=== PATIENT | female | born 2000 | race Caucasian/White ===

== ENCOUNTER → 2019-10-18 09:59 | Outpatient (CLI) | payer OTHER, SELFPAY ==
--- NOTE | ~2019-10-18 | MR_ITS ---
EXAMINATION: MR knee LT wo con DATE: 10/18/2019 10:43 INDICATION: Lateral left knee pain. TECHNIQUE: Magnetic resonance imaging (MRI) of the left knee was performed without intravenous contra st. Sequences included axial PD-weighted FS FSE, coronal PD-weighted FSE and PD-weighted FS FSE, sagi ttal PD-weighted FSE, and sagittal T2-weighted FS FSE. COMPARISON: None. FINDINGS: Medial compartment: Medial meniscus is normal. Medial compartment cartilage is normal. Lateral compartment: Lateral meniscus is normal. Lateral compartment cartilage is normal. Patellofemoral compartment: Patellar cartilage is normal. There is mild edema-like marrow signal intensity in medial patella, lik darius reactive. Ligaments and tendons: The anterior and posterior cruciate ligaments are normal. Medial collateral ligament and lateral sanjana ateral ligament complex are normal. The extensor mechanism is normal. Fluid: There is no knee joint effusion. IMPRESSION: 1. No etiology for the patient's symptoms. Reviewed, dictated and finalized at location A. [facility] [employer]
== END ==
PROVIDERS: Visit Provider Internal Medicine
DX: M25.562 Pain in left knee (principal)
CPT/HCPCS: 73721

== ENCOUNTER 2019-11-11 13:09 | Emergency (ER) | payer OTHER, SELFPAY ==
[2019-11-11 13:15] VITALS: BP 125/67; PULSE 99; RESP 16; TEMP 37; O2SAT 100
--- NOTE | 2019-11-11 13:25 | ED.URI ---
HPI - URI/Sore Throat General Chief Complaint: Upper Respiratory Infection Stated Complaint: flu symptoms Time Seen by Provider: 11/11/19 13:26 Source: patient and RN notes reviewed History of Present Illness HPI Narrative: Patient is a 18-year-old female that presents the urgent care with complaints of nasal congestion, runny nose, sinus congestion, dry cough, headache, chills, fever, sweats. Patient states that it started on Tuesday and worsened this morning. Patient states she has been taking Robitussin. States that she has been unable to find Tylenol or ibuprofen at 3 different stores due to recent hoarding of medication. Patient was in a car with her boyfriend for a long road trip and he was diagnosed with influenza a few days ago. No other acute complaints. No acute distress noted. Patient read the plan of care. Related Data Allergies Allergy/AdvReac Type Severity Reaction Status Date / Time cefaclor [From [facility]] Allergy Mild Unknown Verified 11/11/19 13:15 amoxicillin Allergy Unknown Unknown Verified 11/11/19 13:15 Review of Systems Review of Systems: Narrative: CONSTITUTIONAL: Reports a fever, chills, sweats EYES: Denies visual changes, redness, or discharge. ENT: Reports of nasal congestion, sinus congestion, postnasal drainage CARDIOVASCULAR: Denies chest pain, palpitations, or edema. RESPIRATORY: reports of dry cough with dyspnea or wheezing GASTROINTESTINAL: Denies abdominal pain, nausea, vomiting, or diarrhea. GENITOURINARY: Denies dysuria or hematuria. SKIN: Denies rash or itching. MUSCULOSKELETAL: Denies back pain, joint pain, or myalgia. NEUROLOGIC: Reports of intermittent headaches All other systems reviewed are negative, except as documented in HPI. PMFSH Surgical History Surgical History (Updated 08/07/19 @ 13:07 by Patricia Gibbons CMA) H/O eye surgery 2018 History of tonsillectomy 2013 Family History Family History (Updated 08/07/19 @ 13:09 by Patricia Gibbons CMA) Mother Fibrocystic breast disease (FCBD) Comments At the time of my signature, I reviewed and agree with the nursing past medical, surgical, social, and family history. There is no relevant family history pertinent to the patient complaint. Exam Narrative: Exam Narrative: GENERAL: This is a well-nourished, well-developed patient, appears fatigued HEAD: normocephalic, atraumatic. EYES: PERRL. Sclera clear/white. Vision is grossly intact. EARS: External ears normal, auditory canals clear and without drainage, TMs normal without perforation. Hearing grossly intact. NOSE: External nose normal with no obvious nasal discharge, moderate bilateral erythemic nares with clear rhinorrhea THROAT: Mucous membranes moist, posterior pharynx clear. Moderate postnasal drainage NECK: Neck supple, non-tender without lymphadenopathy, masses or thyromegaly. CARDIOVASCULAR: Regular rate and rhythm without murmurs, gallops, or rubs. RESPIRATORY: Clear to auscultation. Breath sounds equal bilaterally. No wheezes, rales, or rhonchi. SKIN: warm, intact with no suspicious lesions or rash, good texture and turgor. NEURO: awake, alert, and oriented to person, place and time. There were no obvious focal neurologic abnormalities. EXTREMITIES: No clubbing, cyanosis, or edema. Course Vital Signs Vital signs: Vital Signs Temperature 98.6 F 11/11/19 13:15 Pulse Rate 99 11/11/19 13:15 Respiratory Rate 16 11/11/19 13:15 Blood Pressure 125/67 11/11/19 13:15 Pulse Oximetry 100 11/11/19 13:15 Temperature 98.6 F 11/11/19 13:15 Pulse Rate 99 11/11/19 13:15 Respiratory Rate 16 11/11/19 13:15 Blood Pressure 125/67 11/11/19 13:15 Pulse Oximetry 100 11/11/19 13:15 Reviewed MDM - URI/Sore Throat MDM Narrative Medical decision making narrative: Reviewed lab results with the patient. She is aware that her flu swab was positive for influenza A. Take Xofluza as directed. Make sure to eat and drink with the medication. Treat symp
== END 2019-11-11 13:40 | disposition home or self-care (01) ==
PROVIDERS: Emergency Provider Nurse Practitioner Family
DX: J10.1 Influenza due to other identified influenza virus with other respiratory manifestations (principal)
CPT/HCPCS: 87804; 99213; G0463